=== PATIENT | female | born 1960 | race Caucasian/White ===

== ENCOUNTER 2020-03-06 21:29 | Emergency (ER) | payer OTHER ==
[2020-03-06 21:37] VITALS: BP 145/66; PULSE 79
--- NOTE | 2020-03-07 01:45 | EDM.PDOC ---
ED HPI GENERAL MEDICAL PROBLEM - General Chief Complaint: General Stated Complaint: RIGHT ARM AND ANKLE SWOLLEN Time Seen by Provider: 03/07/20 01:19 Source of Information: Reports: Patient, Family () History Limitations: Reports: No Limitations - History of Present Illness INITIAL COMMENTS - FREE TEXT/NARRATIVE: Mrs. Padilla is a very pleasant 59-year-old woman with no chronic medical problems, who now presents the ED after developing a painful red streak on the medial aspect of her upper right arm yesterday, 03/06/2020. The patient states that she has had some swelling and pain to the medial aspect of her right ankle for 3 weeks. She went to see an Orthopedic Surgeon at [facility] in [place] yesterday. X-rays were negative, and the patient was pre scribed a Medrol Dosepak for the possibility of gout, although the patient states that the Orthopedic Surgeon was not confident that that is what she was suffering from. He recommended that if her symptoms did not improve following the Medrol Dosepak, that she return for reevaluation. The patient states that after she got home from [place], she discovered a painful red streak on the medial aspect of her upper right arm. It is tender to palpation, and the patient noticed that there is a firmness to it when palpated. No known injury to the arm. No prior similar symptoms. The patient states that she has taken an occasional Aleve to treat her ankle symptoms, but she did not take any specific medications to treat her arm issue. She has not started the Medrol Dosepak yet. Here in the ED, the patient's initial BP is found to be mildly elevated at 145/66, otherwise, she is hemodynamically stable, afebrile, saturating 96% on room air. Other than her right ankle and right arm issues, the patient denies recent fever, chills, sore throat, ear pain, nasal or sinus congestion, cough, dyspnea, chest pain, palpitations, nausea, vomiting, constipation, diarrhea, abdominal pain, urinary symptoms, recent weight gain or weight loss, recent bloody bowel movements or black bowel movements, headaches, or rashes. The patient does not have a PCP. Her Orthopedic Surgeon is Dr. Michelet Workman. Her Diesel Locomotive Engineer is Dr. Zander Hahn. Right Ankle Pain Score (Numeric/FACES): 6 - Related Data Allergies Allergy/AdvReac Type Severity Reaction Status Date / Time No Known Allergies Allergy Verified 03/06/20 21:37 Home Meds: Home Meds methylPREDNISolone [Methylprednisolone] 4 mg PO ASDIRECTED 03/06/20 [History] Past Medical History TERMINOLOGIST History: Reports: Endometriosis Endocrine/Metabolic History: Reports: Obesity/BMI 30+ - Past Surgical History HEENT Surgical History: Reports: Oral Surgery (wisdom teeth extraction) GI Surgical History: Reports: Cholecystectomy (12/28/2008) Female Surgical History: Reports: Hysterectomy (complete), Other (See Below) ([place]) Musculoskeletal Surgical History: Reports: Other (See Below) (Left 4th and right 3rd trigger finger releases) Social & Family History - Tobacco Use Smoking Status *Q: Never Smoker - Caffeine Use Caffeine Use: Reports: None - Alcohol Use Alcohol Use History: No - Recreational Drug Use Recreational Drug Use: No - Living Situation & Occupation Living situation: Reports: , with Spouse Occupation: Employed (supply chain systems manager) ED ROS GENERAL - Review of Systems Review Of Systems: Comprehensive ROS is negative, except as noted in HPI. ED EXAM, GENERAL - Physical Exam Exam: See Below Exam Limited By: No Limitations General Appearance: Alert, WD/WN, No Apparent Distress Extremities: Other (There is a streak of erythema to the medial aspect of the patient's upper right arm. This area is tender to palpation, and a "cord" can be felt within it, consistent with superficial thrombophlebitis. The patient's medial right ankle is subtly erythematous with very mild swelling extending from the medial malleolus to the medial aspect of her foot. It is tender to palpation, however, no pain is induced with PROM of the ankle. Neurovascular status of both the right upper and right lower extremities is intact.) Course - Vital Signs Last Recorded V/S: Last Vital Signs Temp 36.5 C 03/06/20 21:34 Pulse 79 03/06/20 21:34 Resp 16 03/06/20 21:34 BP 145/66 H 03/06/20 21:34 Pulse Ox 96 03/06/20 21:34 - Orders/Labs/Meds Orders: Active Orders 24 hr Category Date Time Status VL Duplex Upr Ext Veins Ltd Rt [US] Stat Exams 03/07/20 01:41 Taken - Re-Assessments/Exams Free Text/Narrative Re-Assessment/Exam: 03/07/20 01:42 As above, the patient has had 3 weeks of medial right ankle swelling, that is quite subtle on examination. I do not know that I agree with the presumptive diagnosis of gout, because while she has very subtle erythema and very subtle swelling to her medial malleolus and medial foot, which is tender to palpation, she has no pain to PROM. If the patient had gouty arthritis of the ankle, she would not tolerate my manipulating her ankle. The patient's condition may be due to a local inflammatory reaction to an insect bite, however, that condition usually resolves after about 12 days, and the patient states that this has been going on for about 3 weeks, so, unfortunately, I am not sure that I can lend much insight as to the cause. With respect to the streak of erythema on her upper right medial arm, however, she is almost certainly suffering from superficial thrombophlebitis. I have ordered a Doppler ultrasound to confirm, and also rule out a DVT. 03/07/20 03:12 Doppler ultrasound of the right upper extremity as read by Nivia as "No evidence of deep vein thrombosis." The body of the report reads "Mild diffuse soft tissue swelling in the right upper extremity." 03/07/20 03:15 As above, the patient does not have a DVT. While the Doppler ultrasound does not specifically say that she has superficial thrombophlebitis, clinically she does, therefore I will have her apply warm compresses and start taking a baby aspirin per day. As for her right ankle issue, as above, I do not really have much of an opinion on that. While I do not think she has gout, I am not objecting to her taking the Medrol Dosepak as prescribed. Departure - Departure Time of Disposition: 03:16 Disposition: Home, Self-Care 01 Condition: Good Clinical Impression: Superficial thrombophlebitis of right upper extremity - Discharge Information *PRESCRIPTION DRUG MONITORING PROGRAM REVIEWED*: Not Applicable *COPY OF PRESCRIPTION DRUG MONITORING REPORT IN PATIENT LACI: Not Applicable Referrals: Zander Hahn MD [Physician] - Michelet Workman MD [Ordering Only Provider] - Forms: ED Department Discharge Additional Instructions: You were seen in the emergency room after developing a painful red swelling to the inside of your right upper arm, in the setting of right ankle swelling for the past 3 weeks. Work-up in the ER included a Doppler ultrasound of your right upper extremity, which returned negative for a deep vein clot. Based on your history, physical exam, and Doppler ultrasound results, you are most likely suffering from superficial thrombophlebitis. We recommend that you apply a warm compress to the tender red area of your upper right arm, several times a day, and that you begin taking a baby aspirin once a day. While we doubt that you are suffering from gout of your right ankle, we do not object to your taking the Medrol Dosepak as prescribed. If your symptoms persist, please follow-up with Dr. Workman, as previously recommended. If any other problems, please do not hesitate to return to the ER. Sepsis Event Note (ED) - Evaluation Sepsis Screening Result: No Definite Risk - Focused Exam Vital Signs: Vital Signs Temp Pulse Resp BP Pulse Ox 03/06/20 21:34 36.5 C 79 16 145/66 H 96 - My Orders Last 24 Hours: My Active Orders 03/07/20 01:41 VL Duplex Upr Ext Veins Ltd Rt [US] Stat - Assessment/Plan Last 24 Hours: My Active Orders 03/07/20 01:41 VL Duplex Upr Ext Veins Ltd Rt [US] Stat
--- NOTE | 2020-03-07 08:07 | US ---
Right upper quadrant extremity deep venous ultrasound: Duplex and color Doppler evaluation was obtained of the right internal jugular, subclavian, axillary, brachial, basilic and radial veins. Ulnar vein not well visualized. Left internal jugular vein also was evaluated. Findings: Normal compression, phasic flow augmentation is seen. Impression: 1. Ulnar vein not visualized within the right forearm. 2. No findings of venous thrombosis otherwise seen within the right upper extremity or within the left jugular vein. Diagnostic code #2 This report was dictated in MDT I agree with preliminary report from [facility], finalized on 03/07/20, 3:51 AM Central Daylight Time
== END 2020-03-07 03:25 | disposition home or self-care (01) ==
LOC: JD.ED 21:29
DX: I80.8 Phlebitis and thrombophlebitis of other sites (principal); E66.9 Obesity, unspecified; Z68.31 Body mass index [BMI] 31.0-31.9, adult
CPT/HCPCS: 93971-26-RT; 93971-RT; 99282; 99283-25

== ENCOUNTER 2022-06-29 11:25 | Day surgery (SDC) | payer OTHER ==
[~2022-06-29 11:25] MED LIST: Dexamethasone 4 MG/ML 5 ML MDV ONE; EPINEPHrine 1 MG/ML 30 ML MDV IRR SCH; EPINEPHrine 1 MG/ML SDV ONE; Ketorolac 30 MG/ML SDV ONE; Lactated Ringers 1,000 ML IV SCH; Lidocaine 1% 2 ML ONE; Lidocaine 1% 4 ML ONE; Lidocaine 1%/Sod Bicarbonate in NS 8.4% 1 ML Syringe IDERM PRN; Midazolam 1 MG/ML 2 ML SDV ONE; Ondansetron 4 MG/2 ML SDV ONE; Propofol 200 MG/20 ML SDV ONE; Rocuronium 50 MG/5 ML Vial ONE; Ropivacaine 0.5% 5 MG/ML 30 ML SDV ONE; Sodium Chloride 0.9% 10 ML Syringe FLUSH PRN; Sodium Chloride 0.9% 10 ML Syringe FLUSH SCH; ceFAZolin 2 GM Vial ONE; fentaNYL 100 MCG/2 ML SDV ONE
[2022-06-29] MEDS ORDERED: fentaNYL 100 MCG/2 ML SDV ONE (12:37)
[2022-06-29] MEDS ORDERED: Lactated Ringers 1,000 ML ONE (13:46)
[2022-06-29] MEDS ORDERED: Neostigmine Methylsulfate 10 MG/10 ML MDV ONE (14:53)
[2022-06-29] MEDS ORDERED: Ondansetron 4 MG/2 ML SDV IVPUSH PRN (15:08)
[2022-06-29] MEDS ORDERED: fentaNYL 100 MCG/2 ML SDV IVPUSH PRN (15:08)
[2022-06-29] MEDS ORDERED: HYDROmorphone 0.5 MG/0.5 ML Syringe IVPUSH PRN (15:08)
[2022-06-29] MEDS ORDERED: Acetaminophen/HYDROcodone 325-5 MG Tab PO SCH (15:27)
[2022-06-29 17:37] VITALS: BP 111/78; PULSE 72
== END 2022-06-29 17:10 | disposition home or self-care (01) ==
LOC: JD.SDS 11:25
PROVIDERS: ATTEND Orthopaedic Surgery
DX: M75.102 Unspecified rotator cuff tear or rupture of left shoulder, not specified as traumatic (principal); M25.812 Other specified joint disorders, left shoulder; M75.22 Bicipital tendinitis, left shoulder; E66.9 Obesity, unspecified; Z68.31 Body mass index [BMI] 31.0-31.9, adult; Z90.710 Acquired absence of both cervix and uterus; Z79.899 Other long term (current) drug therapy
CPT/HCPCS: 29826; 29827; 29828; C1713; J0171; J0690; J1100; J1885; J2250; J2405; J2704; J2710; J2795; J3010; J7120; 01630; 64415; 76942